=== PATIENT | female | born 1970 | race Caucasian/White ===

== ENCOUNTER 2017-03-11 20:19 | Emergency (ER) | payer OTHER ==
[2017-03-11 20:27] VITALS: BP 137/96; PULSE 83; TEMP 99; BMI 30.9
--- NOTE | 2017-03-11 21:28 | PDOC ---
History of Present Illness - General Chief Complaint: Nausea/Vomiting Stated Complaint: Nausea/Vomiting Time Seen by Provider: 03/11/17 21:17 - History of Present Illness Initial Comments: 03/11/17 21:26 CHIEF COMPLAINT: BERMAN, N/V HISTORY OF PRESENT ILLNESS: 46 yo F with hx of migraines and uterine fibroids presents to ED with L-sided headache x 3 days accompanied by vomiting today. 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 She reports photophobia and nausea, and "some pressure behind my L eye." She denies any blurry vision, change in speech or difficulty swallowing, difficulty walking, and reports that this feels like her usual migraines "but a little worse." PAST MEDICAL HISTORY: as per HPI FAMILY HISTORY: Denies SOCIAL HISTORY: Denies tobacco, alcohol, illicit drug use. SURGICAL HISTORY: myomectomy 2006 ALLERGIES: No known drug allergies REVIEW OF SYSTEMS General/Constitutional: Denies fever or chills. Denies weakness, weight change. HEENT: Photophobia. Denies ear pain or discharge. Denies sore throat. Cardiovascular: Denies chest pain or shortness of breath. Respiratory: Denies cough, wheezing, or hemoptysis. Gastrointestinal: Vomiting. Denies diarrhea or constipation. Genitourinary: Denies dysuria, frequency, or change in urination. Musculoskeletal: Denies joint or muscle swelling or pain. Denies neck or back pain. Skin and breasts: Denies rash or easy bruising. Neurologic: Headache x 3 days. Denies vertigo, loss of consciousness, or loss of sensation. PHYSICAL EXAM General Appearance: Well-appearing, appropriately dressed. No apparent distress. HEENT: Photophobia. EOMI, PERRLA, normal ENT inspection, normal voice, TMs normal, pharynx normal. No conjunctival pallor. No scleral icterus. Neck: Supple. Trachea midline. No tenderness, rigidity, carotid bruit, stridor , lymphadenopathy, or thyromegaly. Respiratory/Chest: Lungs CTAB. No shortness of breath, chest tenderness, respiratory distress, accessory muscle use. No crackles, rales, rhonchi, stridor , wheezing, dullness Cardiovascular: RRR. S1, S2. No JVD, murmur, bradycardia, tachycardia. Gastrointestinal/Abdominal: Normal bowel sounds. Abdomen soft, non-distended. No tenderness or rebound tenderness. No organomegaly, pulsatile mass, guarding , hernia, hepatomegaly, splenomegaly. Musculoskeletal/Extremities: Normal inspection. FROM of all extremities, normal capillary refill. Pelvis Stable. No CVA tenderness. No tenderness to extremities, pedal edema, swelling, erythema or deformity. Integumentary: Appropriate color, dry, warm. No cyanosis, erythema, jaundice or rash Neurologic: recovery agent II-XII intact. Fully oriented, alert. Appropriate mood/affect. Motor strength 5/5. No appreciable EOM palsy, facial droop or sensory deficit. 03/11/17 21:48 Past History - Past Medical History Allergies/Adverse Reactions: Allergies Allergy/AdvReac Type Severity Reaction Status Date / Time No Known Allergies Allergy Verified 03/11/17 20:27 Home Medications: Ambulatory Orders Butalb/Acetaminophen/Caffeine [Fioricet 50-300-40 mg Capsule] 1 each PO Q6H PRN #10 capsule 03/11/17 Ondansetron [Zofran *Odt*] 8 mg SL TID PRN #12 od.tablet 03/11/17 Other medical history: migraine headaches - Psycho/Social/Smoking Cessation Hx Suicidal Ideation: No Smoking History: Never smoked *Physical Exam - Vital Signs Last Vital Signs Temp Pulse Resp BP Pulse Ox 99 F 83 18 137/96 99 03/11/17 20:24 03/11/17 20:24 03/11/17 20:24 03/11/17 20:24 03/11/17 20:24 ED Treatment Course - LABORATORY CBC & Chemistry Diagram: 03/11/17 21:56 03/11/17 21:30 *DC/Admit/Observation/Transfer Diagnosis at time of Disposition: Migraine Qualifiers: Migraine type: unspecified Status migrainosus presence: with status migrainosus Intractability: not intractable Qualified Code(s): G43.901 - Migraine, unspecified, not intractable, with status migrainosus - Discharge Dispostion Disposition: HOME Condition at time of disposition: Stable - Prescriptions Prescriptions: Butalb/Acetaminophen/Caffeine [Fioricet 50-300-40 mg Capsule] 1 each PO Q6H PRN #10 capsule PRN Reason: Headache Ondansetron [Zofran *Odt*] 8 mg SL TID PRN #12 od.tablet PRN Reason: Nausea And/Or Vomiting - Referrals Referrals: Mini Elizabeth MD [Primary Care Provider] - Ricky Sanchez MD [Staff Physician] - - Patient Instructions Printed Discharge Instructions: DI for Migraine Additional Instructions: Please take medications as prescribed. Follow up with neurology by the end of this week for further evaluation of your recurrent migraines. If you experience any sharp, sudden headache, change in vision, pain to your eye, persistent vomiting, difficulty speaking/swallowing/walking, or any new or worsening symptoms, please return to the ER.
[2017-03-11] MEDS ORDERED: METOCLOPRAMIDE HCL INJECTION 10 MG/2 ML VIAL IVPB ONE (21:47)
[2017-03-11] MEDS ORDERED: KETOROLAC TROMETHAMINE 30 MG/1 ML VIAL IVPUSH ONE (21:47)
[2017-03-11] MEDS ORDERED: SODIUM CHLORIDE 0.9% 1000 ML INFUS.BAG IV ONE (21:47)
[2017-03-11] MEDS ORDERED: KETOROLAC TROMETHAMINE 30 MG/1 ML VIAL ONE (21:58)
[2017-03-11] MEDS ORDERED: METOCLOPRAMIDE HCL INJECTION 10 MG/2 ML VIAL ONE (21:58)
[2017-03-11 22:00] LABS: EOSINOPHIL 0.7 % (0-4.5); MCH 31.6 pg (25.7-33.7); MCHC 33.6 g/dl (32.0-36.0); MEAN CELL VOLUME 94.3 fl (80-96); MEAN PLT VOLUME 9.8 fl (7.5-11.1); NEUTROPHILS 76.4 % (42.8-82.8); PLATELET COUNT 284 K/MM3 (134-434); RDW 12.9 % (11.6-15.6); WHITE BLOOD COUNT 8.1 K/mm3 (4.0-10.0)
[2017-03-11 22:31] LABS: ALBUMIN 3.9 g/dl (3.4-5.0); ALK PHOS 57 U/L (45-117); ANION GAP 7 (8-16); BILIRUBIN,TOTAL 0.4 mg/dL (0.2-1.0); CO2 24 mmol/L (21-32); CREATININE 0.8 mg/dL (0.55-1.02); GLUCOSE,RANDOM 100 mg/dL (74-106); SGOT/AST 15 U/L (15-37); SGPT/ALT 23 U/L (12-78); TOT PROT 7.2 g/dl (6.4-8.2)
[2017-03-11 23:01] LABS: URINE APPEARANCE CLEAR; URINE BILIRUBIN NEGATIVE (NEGATIVE); URINE BLOOD NEGATIVE (NEGATIVE); URINE COLOR STRAW; URINE GLUCOSE (UA) NEGATIVE (NEGATIVE); URINE KETONE NEGATIVE (NEGATIVE); URINE LEUK ESTERASE NEGATIVE (NEGATIVE); URINE NITRITE NEGATIVE (NEGATIVE); URINE PROTEIN NEGATIVE (NEGATIVE); URINE UROBILINOGEN NEGATIVE E.U./dl (0.2-1.0)
== END 2017-03-11 23:42 | disposition home or self-care (01) ==
LOC: JER 20:19
PROC: 3E0333Z Introduction of Anti-inflammatory into Peripheral Vein, Percutaneous Approach (ICD-10-PCS; principal; 2017-03-11)
PROC: 3E033GC Introduction of Other Therapeutic Substance into Peripheral Vein, Percutaneous Approach (ICD-10-PCS; 2017-03-11)
DX: G43.901 Migraine, unspecified, not intractable, with status migrainosus (principal)
CPT/HCPCS: 36415; 80053; 81003; 83690; 84703; 85025; 85651; 87086; 96374; 96375; 99284-25

== ENCOUNTER 2019-08-29 11:17 | Emergency (ER) | payer OTHER ==
[2019-08-29 11:29] VITALS: BMI 32.3
--- NOTE | 2019-08-29 11:56 | PDOC ---
History of Present Illness - General Chief Complaint: Sore Throat Stated Complaint: COLD SYMPTOMS Time Seen by Provider: 08/29/19 11:34 History Source: Patient - History of Present Illness Initial Comments: 08/29/19 12:09 Chief complaint: Cough Patient 48-year-old female who son was diagnosed with pneumonia 2 weeks ago who developed a cough and decided to take the leftover antibiotics he had after he was prescribed a new antibiotic. She took clarithromycin for 9 days. She states the cough is not gotten better. No fever. No shortness of breath. Patient rode a motorbike here but has the pedal. No signs of respiratory distress. Patient has slightly nonproductive cough. GENERAL/CONSTITUTIONAL: No fever, weakness. dizziness HEAD, EYES, EARS, NOSE AND THROAT: No change in vision. No ear pain or discharge. No sore throat. CARDIOVASCULAR: No chest pain RESPIRATORY: No shortness of breath +cough GASTROINTESTINAL: No pain, nausea, vomiting, diarrhea or constipation GENITOURINARY: No dysuria MUSCULOSKELETAL: No neck or back pain SKIN: No rash NEUROLOGIC: No headache, vertigo, loss of consciousness, or loss of sensation. GENERAL: The patient is awake, alert, and fully oriented, in no acute distress. HEAD: Normal with no signs of trauma. EYES: Pupils equal, round and reactive to light, sclera anicteric, conjunctiva clear. ENT: pharynx: no erythema, no exudate, uvula midline NECK: supple CHEST: clear, nontender, rr ABD: soft, nontender BACK: no tenderness or signs of injury EXTREMITIES: Normal range of motion, no edema. NEUROLOGICAL: Normal speech, normal gait. SKIN: Warm, Dry Past History - Past Medical History Allergies/Adverse Reactions: Allergies Allergy/AdvReac Type Severity Reaction Status Date / Time No Known Allergies Allergy Verified 08/29/19 11:29 Home Medications: Ambulatory Orders Butalb/Acetaminophen/Caffeine [Fioricet 50-300-40 mg Capsule] 1 each PO Q6H PRN #10 capsule 03/11/17 Ondansetron [Zofran *Odt*] 8 mg SL TID PRN #12 od.tablet 03/11/17 Albuterol Sulfate Inhaler - [Ventolin HFA Inhaler -] 2 inh PO Q4H #1 inh Dextromethorphan Polistirex [Delsym] 30 mg PO BID #60 ml 08/29/19 predniSONE [Deltasone -] 40 mg PO DAILY #10 tablet 08/29/19 COPD: No - Psycho Social/Smoking Cessation Hx Smoking History: Never smoked *Physical Exam - Vital Signs Last Vital Signs Temp Pulse Resp BP Pulse Ox 98.1 F 100 H 18 133/76 99 08/29/19 11:26 08/29/19 11:26 08/29/19 11:26 08/29/19 11:26 08/29/19 11:26 Medical Decision Making - Medical Decision Making 08/29/19 12:10 48-year-old female, non-smoker, who has had cough for 10 days, feels is not getting better, took her son's clarithromycin for 9 days. No shortness of breath, no hypoxia no signs of respiratory distress. Patient has nonproductive cough. Given length of time, will not screen for flu. Will get chest x-ray to rule out any acute pathology and then give supportive instructions and education regarding cough 08/29/19 13:01 Wrist x-ray negative, discussed at length patient's symptoms and the patient does not need any further antibiotics. Patient will be prescribed prednisone and albuterol given her symptoms and the characteristic of a cough. She is requesting cough medicine to be prescribed. Discussed issues, findings, results, applicable medications and treatments and follow-up. All these were understood and all questions were answered Discharge - Discharge Information Problems reviewed: Yes Clinical Impression/Diagnosis: Upper respiratory infection Qualifiers: URI type: unspecified URI Qualified Code(s): J06.9 - Acute upper respiratory infection, unspecified Condition: Stable Disposition: HOME - Admission No - Additional Discharge Information Prescriptions: Albuterol Sulfate Inhaler - [Ventolin HFA Inhaler -] 2 inh PO Q4H #1 inh Dextromethorphan Polistirex [Delsym] 30 mg PO BID #60 ml predniSONE [Deltasone -] 40 mg PO DAILY #10 tablet - Follow up/Referral Referrals: Marck Barber [Primary Care Provider] - - Patient Discharge Instructions Patient Printed Discharge Instructions: DI for Viral Upper Respiratory Infection -- Adult Additional Instructions: Drink 2-3 L of water daily Take Tylenol 650 mg every 4 hours or Motrin 600 mg every 6 hours for fever and pain Use the albuterol inhaler, 2 puffs every 4 hours as needed for cough/wheezing. Start the prednisone 40 mg once daily for 5 days You can take the cough medicine as prescribed, is probably better to take at bedtime only, especially if you are working. Return to the nearest ER if short of breath, unable to swallow or feeling sicker Followup with your doctor in one to 2 days - Post Discharge Activity
[2019-08-29 13:19] VITALS: BP 130/70; PULSE 86; TEMP 97.9
== END 2019-08-29 13:19 | disposition home or self-care (01) ==
LOC: JERFT 11:17
DX: J06.9 Acute upper respiratory infection, unspecified (principal)
CPT/HCPCS: 71046-TC-FY; 99281-25

== ENCOUNTER 2022-11-01 07:19 | Emergency (ER) | payer OTHER ==
[2022-11-01 07:48] VITALS: BP 133/90; PULSE 65; RESP 16; TEMP 97.6; BMI 36.3
== END 2022-11-01 08:47 | disposition home or self-care (01) ==
LOC: JERFT 07:19 → JER 07:19 → JERFT 08:47
DX: S93.401A Sprain of unspecified ligament of right ankle, initial encounter (principal); B35.3 Tinea pedis; X50.0XXA Overexertion from strenuous movement or load, initial encounter
CPT/HCPCS: 73610-TC-RT-FY; 73630-TC-RT-FY; 99283-25